=== PATIENT | male | born 1950 | race Caucasian/White ===

== ENCOUNTER 2019-02-18 08:55 | Day surgery (SDC) | payer MEDICARE, OTHER ==
[2019-02-18] MEDS ORDERED: Bupivacaine 0.5% 30 ML SDV ONE ×2 (08:56→11:54)
[2019-02-18] MEDS ORDERED: Dexamethasone/Tobramycin 0.1-0.3% Ophth Susp 2.5 ML Bottle ONE ×2 (08:57→12:28)
[2019-02-18] MEDS ORDERED: Dexamethasone/Tobramycin 0.1-0.3% Ophth Oint 3.5 GM Tube ONE (08:59)
[2019-02-18] MEDS ORDERED: Lactated Ringers 1,000 ML IV SCH (09:45)
[2019-02-18] MEDS ORDERED: fentaNYL 100 MCG/2 ML SDV ONE (10:47)
[2019-02-18] MEDS ORDERED: Propofol 200 MG/20 ML SDV ONE ×2 (10:50→11:03)
--- NOTE | 2019-02-18 10:52 | PCM.PREANE ---
Preanesthetic Assessment - Anesthesia/Transfusion/Family Hx Anesthesia History: Prior Anesthesia Without Reaction Family History of Anesthesia Reaction: No Transfusion History: No Prior Transfusion(s) Intubation History: Unknown - Review of Systems General: No Symptoms Pulmonary: No Symptoms Cardiovascular: No Symptoms Gastrointestinal: No Symptoms Neurological: No Symptoms Other: Reports: None - Physical Assessment NPO Status Date: 02/17/19 NPO Status Time: 23:00 Vital Signs: Last Vital Signs Temp 37.6 C 02/18/19 09:30 Pulse 68 02/18/19 09:30 Resp 16 02/18/19 09:30 BP 136/81 02/18/19 09:30 Pulse Ox 95 02/18/19 09:30 Height: 5 ft 10 in Weight: 94.801 kg ASA Class: 2 Mental Status: Alert & Oriented x3 Airway Class: Mallampati = 3 Dentition: Reports: Normal Dentition Thyro-Mental Finger Breadths: 3 Mouth Opening Finger Breadths: 2 (small mouth) ROM/Head Extension: Limited/Partial Lungs: Clear to Auscultation, Normal Respiratory Effort Cardiovascular: Regular Rate, Regular Rhythm - Allergies Allergies/Adverse Reactions: Allergies Allergy/AdvReac Type Severity Reaction Status Date / Time morphine Allergy Itching Verified 02/16/19 09:08 - Blood Blood Available: No - Anesthesia Plan Pre-Op Medication Ordered: None - Acknowledgements Anesthesia Type Planned: MAC Pt an Appropriate Candidate for the Planned Anesthesia: Yes Alternatives and Risks of Anesthesia Discussed w Pt/Guardian: Yes Pt/Guardian Understands and Agrees with Anesthesia Plan: Yes PreAnesthesia Questionnaire HEENT History: Reports: Impaired Vision Other HEENT History: wears glasses Cardiovascular History: Reports: None Respiratory History: Reports: Sleep Apnea Other Respiratory History: uses CPAP Gastrointestinal History: Reports: GERD Genitourinary History: Reports: None [employer] 1ST SHIFT History: Other Musculoskeletal History: occasional low back pain Neurological History: Reports: None Psychiatric History: Reports: None Endocrine/Metabolic History: Reports: Hypothyroidism Hematologic History: Reports: Iron Deficiency Immunologic History: Reports: None Oncologic (Cancer) History: Reports: None Dermatologic History: Reports: None - Past Surgical History Head Surgeries/Procedures: Reports: None HEENT Surgical History: Reports: Tonsillectomy Cardiovascular Surgical History: Reports: None Respiratory Surgical History: Reports: None GI Surgical History: Reports: Cholecystectomy, Colonoscopy, EGD Female Surgical History: Male Surgical History: Reports: None Endocrine Surgical History: Reports: None Neurological Surgical History: Reports: None Musculoskeletal Surgical History: Reports: Arthroscopic Knee, Other (See Below) Other Musculoskeletal Surgeries/Procedures:: ankle surgery Oncologic Surgical History: Reports: None Dermatological Surgical History: Reports: None - SUBSTANCE USE Smoking Status *Q: Former Smoker Tobacco Use Within Last Twelve Months: No Recreational Drug Use History: No - HOME MEDS Home Medications: Home Meds Acetaminophen/HYDROcodone [[place] 325-10 MG] 1 tab PO Q12H PRN 02/14/19 [History] Ascorbic Acid [Vitamin C] 500 mg PO DAILY 02/14/19 [History] Aspirin 81 mg PO DAILY 02/14/19 [History] Calcium Polycarbophil [Fiber-Tabs] 625 mg PO BID 02/14/19 [History] Cinnamon Bark [Cinnamon] 500 mg PO BID 02/14/19 [History] Ferrous Sulfate [Iron] 325 mg PO DAILY 02/14/19 [History] Garlic 5,000 mg PO DAILY 02/14/19 [History] Glucosam/Chondr/Collagn/Hyalur [Glucosamine & Chondroitin Cap] 1 tab PO BID [History] Levothyroxine 125 mcg PO DAILY 02/14/19 [History] Lutein [Natural Lutein] 20 mg PO DAILY 02/14/19 [History] Magnesium Oxide [Magnesium] 400 mg PO DAILY 02/14/19 [History] Milk Thistle 1,000 mg PO DAILY 02/14/19 [History] Multivit-Min/FA/Lycopene/Lut [Senior Tabs] 1 tab PO DAILY 02/14/19 [History] Niacinamide [Niacin] 500 mg PO DAILY 02/14/19 [History] Omeprazole 20 mg PO DAILY 02/14/19 [History] Saw [place] Fruit [Saw [place]] 450 mg PO DAILY 02/14/19 [History] Turmeric 400 mg PO DAILY 02/14/19 [History] Ubidecarenone [Coq-10] 100 mg PO DAILY 02/14/19 [History] Vitamin B Complex 1 tab PO DAILY 02/14/19 [History] Vitamin E 400 unit PO DAILY 02/14/19 [History] lisinopriL [Lisinopril] 10 mg PO DAILY 02/14/19 [History] - CURRENT (IN HOUSE) MEDS Current Meds: Current Medications Lactated Ringer's (Ringers, Lactated) 1,000 mls @ 100 mls/hr IV ASDIRECTED LEO Last Admin: 02/18/19 10:23 Dose: 100 mls/hr Discontinued Medications Bupivacaine HCl (Marcaine 0.5%) Confirm Administered Dose 60 ml .ROUTE .STK-MED ONE Stop: 02/18/19 08:57 Tobramycin/Dexamethasone (Tobradex Ophth Susp) Confirm Administered Dose 2.5 ml .ROUTE .STK-MED ONE Stop: 02/18/19 08:58 Tobramycin/Dexamethasone (Tobradex Ophth Oint) Confirm Administered Dose 3.5 gm .ROUTE .STK-MED ONE Stop: 02/18/19 09:00
[2019-02-18] MEDS ORDERED: Ketorolac 30 MG/ML SDV ONE (10:57)
[2019-02-18] MEDS ORDERED: Ondansetron 4 MG/2 ML SDV ONE (10:57)
[2019-02-18] MEDS ORDERED: Midazolam 1 MG/ML 2 ML SDV ONE (10:57)
[2019-02-18] MEDS ORDERED: Sodium Chloride 0.9% 40 ML ONE (11:42)
[2019-02-18] MEDS ORDERED: ceFAZolin 1 GM Vial ONE (11:42)
--- NOTE | 2019-02-18 11:42 | PCM.OPNOTE ---
- General Post-Op/Procedure Note Date of Surgery/Procedure: 02/18/19 Operative Procedure(s): bilateral carpal tunnel release Pre Op Diagnosis: bilateral carpal tunnel syndrome Post-Op Diagnosis: Same Anesthesia Technique: Local, MAC Primary Surgeon: Emerson Coto Anesthesia Provider: Sree EDWARDS in mLs: 10 Condition: Good
[2019-02-18] MEDS ORDERED: Lidocaine 1% 20 ML MDV ONE (11:54)
--- NOTE | 2019-02-18 13:08 | PCM.POSTAN ---
POST ANESTHESIA ASSESSMENT - MENTAL STATUS Mental Status: Alert, Oriented - VITAL SIGNS Vital Signs: Last Vital Signs Temp 36 C 02/18/19 12:48 Pulse 65 02/18/19 12:58 Resp 9 L 02/18/19 12:58 BP 153/70 H 02/18/19 12:58 Pulse Ox 93 L 02/18/19 12:58 - RESPIRATORY Respiratory Status: Respiratory Rate WNL, Airway Patent, O2 Saturation Stable - CARDIOVASCULAR CV Status: Pulse Rate WNL, Blood Pressure Stable - GASTROINTESTINAL GI Status: No Symptoms - PAIN Pain Score: 0 - POST OP HYDRATION Hydration Status: Adequate & Stable - OBSERVATIONS Free Text/Narrative:: No anesthesia problems
--- NOTE | 2019-02-18 14:48 | PCM48HPAN ---
Post Anesthesia Note - EVALUATION WITHIN 48HRS OF ANESTHETIC Vital Signs in Normal Range: Yes Patient Participated in Evaluation: Yes Respiratory Function Stable: Yes Airway Patent: Yes Cardiovascular Function Stable: Yes Hydration Status Stable: Yes Pain Control Satisfactory: Yes Nausea and Vomiting Control Satisfactory: Yes Mental Status Recovered: Yes Vital Signs: Last Vital Signs Temp 36.5 C 02/18/19 13:05 Pulse 55 L 02/18/19 13:45 Resp 16 02/18/19 13:45 BP 166/76 H 02/18/19 13:45 Pulse Ox 94 L 02/18/19 13:45 - COMMENTS/OBSERVATIONS Free Text/Narrative:: No anesthesia problems
--- NOTE | 2019-02-18 15:04 | OR ---
SURGEON: Emerson Coto DATE OF PROCEDURE: 02/18/2019 PREOPERATIVE DIAGNOSIS: Bilateral carpal tunnel syndrome. POSTOPERATIVE DIAGNOSIS: Bilateral carpal tunnel syndrome. PROCEDURE: Bilateral carpal tunnel release. PRIMARY SURGEON: Emerson Coto DO. ANESTHESIA: Sree Townsend CRNA. FLUID: Lactated Ringer's solution. ESTIMATED BLOOD LOSS: 5 mL. COMPLICATIONS: None. SPECIMEN: None. DISCHARGE DISPOSITION: Stable to PACU. HISTORY AND INDICATIONS FOR THE PROCEDURE: The patient was seen preoperatively in the clinic. He had been progressively suffering from worse symptoms of carpal tunnel syndrome. Risks and goals of the procedure were explained to the patient. Informed consent was obtained. DETAILS OF PROCEDURE: The patient was seen preoperatively by myself and the Anesthesia staff in the preoperative holding area where the operative site was marked. He was brought to the operative suite by the Anesthesia staff where conscious sedation was administered. Well-padded tourniquets were placed on both forearms. Both bilateral upper extremities were then prepped and draped in sterile manner. Time-out was called to identify the correct patient, the correct procedure, the correct site, and that antibiotics had been given within appropriate period of time. Left upper extremity was done first. The left hand and forearm were then exsanguinated. Tourniquet was raised to 200 mmHg for 11 minutes and let down after the sutures had been placed. An incision was made just proximal to the line in line with the 1st metacarpal and then in line with the radial border of the 4th digit. This was carried proximal to 1.5 cm. Bleeding was controlled with bipolar electrocautery. Self-retaining retractor was used. The transverse carpal ligament was identified and incised with a 15 blade. I then used Ragnell for visualization and then went above and below the deep palmar fascia proximally and distally of the transverse carpal ligament with Metzenbaum's, and then under direct visualization, split the palmar fascia proximally and distally. I then placed Decadron over the nerve and then closed with three horizontal mattress interrupted sutures followed by Betadine-soaked Adaptic, fluffs, and an Marcelino wrap. The tourniquet was let down after sutures had been placed. I started with the left and then I went to the right upper extremity. The same procedure was performed with a tourniquet time of 8 minutes. After our procedures have been finished, we then allowed the patient to awaken from conscious sedation and take him to the PACU in stable condition. [id number] / MODL /[id number]
== END 2019-02-18 15:00 | disposition home or self-care (01) ==
LOC: MW.SDS 08:55
PROVIDERS: ATTEND Orthopaedic Surgery
DX: G56.03 Carpal tunnel syndrome, bilateral upper limbs (principal); K21.9 Gastro-esophageal reflux disease without esophagitis; E03.9 Hypothyroidism, unspecified; Z88.5 Allergy status to narcotic agent; Z87.891 Personal history of nicotine dependence; Z79.899 Other long term (current) drug therapy
CPT/HCPCS: 64721; A9270; J0690; J1885; J2001; J2250; J2405; J2704; J3010; J3490; J7120